=== PATIENT | female | born 1985 | race Caucasian/White ===

== ENCOUNTER 2018-07-23 17:19 | Emergency (ER) | payer OTHER ==
[2018-07-23 17:23] VITALS: BMI 32.1
--- NOTE | 2018-07-23 18:02 | PDOC ---
History of Present Illness - History of Present Illness Initial Comments: 07/23/18 18:36 The patient is a 33 year old female with a past medical history of asthma, gastric sleeve, stomach tuck, and cholecystectomy who presents to the emergency department for evaluation of left lower quadrant abdominal pain starting 3 days ago. She describes the pain as sharp, stabbing, and cramping localized in the umbilical area. Patient reports 1 episode of non bloody non bilious emesis yesterday and nausea without emesis this morning. She states she visits the emergency department today secondary to joni blood she observed after wiping this morning. Patient reports her last normal bowel movement was this morning. Patients LMP was in February. Of note, the patient reports visiting [facility] for similar symptoms a few weeks ago, and has a follow-up appointment with a GI specialist this week. The patient denies a history of abnormal vaginal discharge, hemorrhoids, chest pain, shortness of breath, headache, and dizziness. Denies fever, chills, diarrhea, constipation, or any urinary symptoms. Allergies: NKDA Social History: No reported alcohol, cigarette, or drug use. Surgical History: Cholesystectomy, gastric sleeve, stomach tuck. PCP: Dr. Laura ([phone]) <Adryan Mercedes - Last Filed: 07/23/18 20:07> <Felisha Burrows - Last Filed: 07/23/18 20:17> - General Chief Complaint: Pain Stated Complaint: ABDOMINAL PAIN Time Seen by Provider: 07/23/18 17:42 Past History <Adryan Mercedes - Last Filed: 07/23/18 20:07> - Past Medical History Asthma: Yes COPD: No - Surgical History Cholecystectomy: Yes - Suicide/Smoking/Psychosocial Hx Smoking History: Never smoked <Felisha Burrows - Last Filed: 07/23/18 20:17> - Past Medical History Allergies/Adverse Reactions: Allergies Allergy/AdvReac Type Severity Reaction Status Date / Time No Known Allergies Allergy Verified 07/23/18 17:23 Home Medications: Ambulatory Orders Albuterol Sulfate Inhaler - [Ventolin Hfa Inhaler -] 1 - 2 inh PO QID 07/23/18 Review of Systems - Review of Systems Able to Perform ROS?: Yes Comments:: CONSTITUTIONAL: Absent: fever, chills, diaphoresis, generalized weakness, malaise, loss of appetite HEENT: Absent: rhinorrhea, nasal congestion, throat pain, throat swelling, difficulty swallowing, mouth swelling, ear pain, eye pain, visual Changes CARDIOVASCULAR: Absent: chest pain, syncope, palpitations, irregular heart rate, lightheadedness , peripheral edema RESPIRATORY: Absent: cough, shortness of breath, dyspnea with exertion, orthopnea, wheezing, stridor, hemoptysis GASTROINTESTINAL: (+)Left lower quadrant abdominal pain. (+)Nausea (+)Vomiting. Absent: diarrhea, constipation, melena, hematochezia GENITOURINARY: Absent: dysuria, frequency, urgency, hesitancy, hematuria, flank pain, genital pain MUSCULOSKELETAL: Absent: myalgia, arthralgia, joint swelling SKIN: Absent: rash, itching, pallor HEMATOLOGIC/IMMUNOLOGIC: Absent: easy bleeding, easy bruising, lymphadenopathy, frequent infections ENDOCRINE: Absent: unexplained weight gain, unexplained weight loss, heat intolerance, cold intolerance NEUROLOGIC: Absent: headache, focal weakness or paresthesias, dizziness, unsteady gait, seizure, mental status changes, bladder or bowel incontinence PSYCHIATRIC: Absent: anxiety, depression, suicidal or homicidal ideation, hallucinations. <Adryan Mercedes - Last Filed: 07/23/18 20:07> *Physical Exam - Vital Signs Last Vital Signs Temp Pulse Resp BP Pulse Ox 98.9 F 71 18 110/54 L 99 07/23/18 17:20 07/23/18 17:20 07/23/18 17:20 07/23/18 17:20 07/23/18 17:20 - Physical Exam Comments: GENERAL: Well developed, well nourished. Awake and alert. No acute distress. HEENT: Normocephalic, atraumatic. PERRLA, EOMI. No conjunctival pallor. Sclera are non- icteric. Moist mucous membranes. Oropharynx is clear. NECK: Supple. Full ROM. No JVD. Carotid pulses 2+ and symmetric, without bruits. No thyromegaly. No lymphadenopathy. CARDIOVASCULAR: Regular rate and rhythm. No murmurs, rubs, or gallops. Distal pulses are 2+ and symmetric. PULMONARY: No evidence of respiratory distress. Lungs clear to auscultation bilaterally. No wheezing, rales or rhonchi. ABDOMINAL: Soft. Non-tender. Non-distended. No rebound or guarding. No organomegaly. Normoactive bowel sounds. MUSCULOSKELETAL Normal range of motion at all joints. No bony deformities or tenderness. No CVA tenderness. EXTREMITIES: No cyanosis. No clubbing. No edema. No calf tenderness. SKIN: Warm and dry. Normal capillary refill. No rashes. No jaundice. NEUROLOGICAL: Alert, awake, appropriate. Cranial nerves 2-12 intact. No deficits to light touch and temperature in face, upper extremities and lower extremities. No motor deficits in the in face, upper extremities and lower extremities. Normoreflexic in the upper and lower extremities. Normal speech. Toes are down- going bilaterally. Gait is normal without ataxia. PSYCHIATRIC: Cooperative. Good eye contact. Appropriate mood and affect. <Adryan Mercedes - Last Filed: 07/23/18 20:07> - Vital Signs Last Vital Signs Temp Pulse Resp BP Pulse Ox 98.9 F 71 18 110/54 L 99 07/23/18 17:20 07/23/18 17:20 07/23/18 17:20 07/23/18 17:20 07/23/18 17:20 <Felisha Burrows - Last Filed: 07/23/18 20:17> ED Treatment Course - LABORATORY CBC & Chemistry Diagram: 07/23/18 18:00 07/23/18 18:00 <Adryan Mercedes - Last Filed: 07/23/18 20:07> - LABORATORY CBC & Chemistry Diagram: 07/23/18 18:00 07/23/18 18:00 <Felisha Burrows - Last Filed: 07/23/18 20:17> Medical Decision Making - Medical Decision Making 07/23/18 20:15 33 yo female had Abdominal pain and more precisely came because she saw bright red blood on the toilet paper. Initially she said that she had not experienced this before. Her labs were unremarkable. test was negative. She did state later that she was hospitalized for a similar episode a few weeks ago and does have a follow-up appointment with the food preservation scientist this week. Her symptoms resolved and she wanted to go home. Patient is discharged home and encouraged to follow up with the food preservation scientist <Felisha Burrows - Last Filed: 09/23/18 20:17> *DC/Admit/Observation/Transfer - Attestations Scribe Attestion: Documentation prepared by Adryan Mercedes, acting as medical technologist blood bank for Felisha Burrows MD. <Adryan Mercedes - Last Filed: 07/23/18 20:07> <Felisha Burrows - Last Filed: 07/23/18 20:17> Diagnosis at time of Disposition: Rectal bleeding - Discharge Dispostion Disposition: HOME Condition at time of disposition: Stable - Referrals Referrals: Abelardo Laura [Primary Care Provider] - - Patient Instructions Printed Discharge Instructions: DI for Rectal Bleeding Additional Instructions: please keep the food preservation scientist appointment this week - Post Discharge Activity
[2018-07-23] MEDS ORDERED: SODIUM CHLORIDE 1,000 ML IV STA (18:07)
[2018-07-23] MEDS ORDERED: ONDANSETRON 4 MG/2 ML VIAL IVPUSH STA (18:07)
[2018-07-23 19:06] LABS: BASO % 0.7 % (0-2.0); EOS % 1.4 % (0-4.5); HEMATOCRIT 38.8 % (32.4-45.2); MCH 29.5 pg (25.7-33.7); MCHC 33.5 g/dl (32.0-36.0); MEAN CELL VOLUME 88.2 fl (80-96); MEAN PLT VOLUME 8.3 fl (7.5-11.1); MONO % 8.5 % (3.8-10.2); NEUT % 58.4 % (42.8-82.8); PLATELET COUNT 262 K/MM3 (134-434); RDW 13.6 % (11.6-15.6); WHITE BLOOD COUNT 7.4 K/mm3 (4.0-10.0)
[2018-07-23 19:07] LABS: URINE APPEARANCE CLEAR; URINE BILIRUBIN NEGATIVE (<2.0 mg/dL); URINE COLOR LTYELLOW; URINE GLUCOSE (UA) NEGATIVE (NEGATIVE); URINE KETONE NEGATIVE (NEGATIVE); URINE LEUK ESTERASE NEGATIVE (NEGATIVE); URINE NITRITE NEGATIVE (NEGATIVE); URINE PROTEIN NEGATIVE (NEGATIVE); URINE UROBILINOGEN NEGATIVE mg/dL (0.2-1.0)
[2018-07-23 19:37] LABS: ALBUMIN 3.5 g/dl (3.4-5.0); ALK PHOS 67 U/L (45-117); ANION GAP 6 MMOL/L (8-16); BILIRUBIN,TOTAL 0.2 mg/dL (0.2-1); BLOOD UREA NITROGEN 14 mg/dL (7-18); CALCIUM 9.1 mg/dL (8.5-10.1); CHLORIDE 107 mmol/L (98-107); CO2 27 mmol/L (21-32); CREATININE 0.7 mg/dL (0.55-1.3); GLUCOSE,RANDOM 88 mg/dL (74-106); POTASSIUM 4.4 mmol/L (3.5-5.1); SGOT/AST 11 U/L (15-37); SGPT/ALT 17 U/L (13-61); SODIUM 140 mmol/L (136-145); TOT PROT 7.3 g/dl (6.4-8.2)
[2018-07-23 20:23] VITALS: BP 122/71; PULSE 78; TEMP 97.5
== END 2018-07-23 20:20 | disposition home or self-care (01) ==
LOC: JER 17:19
PROC: 3E0337Z Introduction of Electrolytic and Water Balance Substance into Peripheral Vein, Percutaneous Approach (ICD-10-PCS; principal; 2018-07-23)
PROC: 3E033GC Introduction of Other Therapeutic Substance into Peripheral Vein, Percutaneous Approach (ICD-10-PCS; 2018-07-23)
DX: K62.5 Hemorrhage of anus and rectum (principal)
CPT/HCPCS: 36415; 80053; 81003; 84703; 85025; 96361; 96374; 99283-25; J7030